=== PATIENT | female | born 1990 | race Caucasian/White ===

== ENCOUNTER 2016-10-29 18:45 | Emergency (ER) | payer MEDICAID ==
[2016-10-29] MEDS ORDERED: KETOROLAC 30 MG/ML VIAL IVP STA (20:03)
[2016-10-29] MEDS ORDERED: SODIUM CHLORIDE 0.9% 1,000 ML IV ONE ×2 (20:03→20:22)
[2016-10-29] MEDS ORDERED: ONDANSETRON 4 MG/2 ML VIAL IVP STA (20:03)
[2016-10-29] MEDS ORDERED: LORazepam 2 MG/ML SYRINGE IVP STA (20:03)
--- NOTE | 2016-10-29 20:06 | ED Physician Documentation ---
PD HPI NVD - Stated complaint Stated Complaint: DRUG WITHDRAWAL - Chief complaint Chief Complaint: Abd Pain - History obtained from History obtained from: Patient - History of Present Illness Timing - onset: Other (She is trying to stop heroin, last used yesterday, injecting about $60 worth per day. Last time she was sober was 18 months ago. She has been having vomiting and diarrhea and stomach cramps and feels restless. ) Review of Systems Constitutional: denies: Fever, Chills Nose: reports: Rhinorrhea / runny nose. denies: Congestion GI: reports: Abdominal Pain, Nausea, Vomiting, Diarrhea PD PAST MEDICAL HISTORY - Past Medical History Cardiovascular: None Respiratory: None Neuro: None Endocrine/Autoimmune: None GI: Other LIBRARY MANAGER: Ovarian cysts : Chronic bladder infection, Other HEENT: None Psych: Anxiety, Panic attacks Musculoskeletal: None Derm: None - Past Surgical History Past Surgical History: Yes General: Colonoscopy - Present Medications Home Medications: Ambulatory Orders Medication Instructions Recorded Confirmed Etonogestrel/Ethinyl Estradiol 1 each VG 01/23/15 06/16/15 [Nuvaring Vaginal Ring] Clonazepam 0.5 mg PO BID PRN #4 tablet 06/27/15 08/06/15 Tramadol HCl 50 mg PO Q6HR PRN 08/06/15 09/30/15 Cyclobenzaprine [Flexeril] 10 mg PO TID PRN #20 tablet 10/01/15 Ondansetron Odt [Zofran] 4 mg TL Q6H PRN #10 tablet 12/11/15 Ondansetron HCl [Zofran] 4 mg PO Q6H PRN #10 tablet 04/22/16 Lorazepam [Ativan] 1 mg PO TID PRN #10 tablet 10/29/16 Ondansetron HCl [Zofran] 4 mg PO Q6H PRN #10 tablet 10/29/16 cloNIDine [Catapres] 0.1 mg PO BID #7 tablet 10/29/16 - Allergies Allergies/Adverse Reactions: Allergies Allergy/AdvReac Type Severity Reaction Status Date / Time promethazine HCl * Allergy Hallucinati Verified 10/29/16 18:55 [From Phenergan] ons - Social History Does the pt smoke?: Yes Smoking Status: Current every day smoker Does the pt drink ETOH?: Yes Does the pt have substance abuse?: No Substance Use and Type: Heroin - Immunizations Immunizations are current?: No Immunizations: TDAP >10years/unknown - POLST Patient has POLST: No PD ED PE NORMAL - Vitals Vital signs reviewed: Yes - General General: Alert and oriented X 3, Other (Restless) - HEENT HEENT: Other (Dilated pupils) - Neck Neck: Supple, no meningeal sign, No bony TTP - Abdomen Abdomen: Normal bowel sounds, Soft, Non tender - Extremities Extremities: No deformity, No tenderness to palpate - Neuro Neuro: Alert and oriented X 3, Normal speech - Psych Psych: Normal mood, Normal affect Results - Vitals Vitals: Vital Signs - 24 hr 10/29/16 18:52 Temperature 37.2 C Heart Rate 126 H Respiratory 18 Rate Blood Pressure 135/80 H O2 Saturation 98 Oxygen O2 Source Room air Departure - Departure Disposition: 01 Home, Self Care Clinical Impression: Heroin withdrawal Condition: Good Record reviewed to determine appropriate education?: Yes Instructions: Addiction Heroin Tx Prescriptions: Lorazepam [Ativan] 1 mg PO TID PRN #10 tablet PRN Reason: Anxiety cloNIDine [Catapres] 0.1 mg PO BID #7 tablet Ondansetron HCl [Zofran] 4 mg PO Q6H PRN #10 tablet PRN Reason: Nausea / Vomiting Comments: Call your doctor to arrange a follow-up appointment, make the next available appointment. In the interim, return anytime if worse or if new symptoms develop. Your blood pressure was elevated today on check into the emergency department. This does not mean that you have hypertension, it is a common phenomenon to come to the emergency department and have elevated blood pressure. I recommend that she see her primary care physician within the week to have it rechecked when you are feeling better.
[2016-10-29] MEDS ORDERED: LORazepam 2 MG/ML SYRINGE ONE (20:21)
[2016-10-29] MEDS ORDERED: ONDANSETRON 4 MG/2 ML VIAL ONE (20:21)
[2016-10-29] MEDS ORDERED: KETOROLAC 30 MG/ML VIAL ONE (20:22)
[2016-10-29] MEDS ORDERED: SODIUM CHLORIDE FLUSH 0.9% 10 ML SYRINGE IVP ONE (20:22)
[2016-10-29] MEDS ORDERED: cloNIDine 0.1 MG TABLET PO STA (20:58)
[2016-10-29] MEDS ORDERED: ACETAMINOPHEN 325 MG TABLET PO STA (20:58)
[2016-10-29] MEDS ORDERED: LORazepam 0.5 MG TABLET PO STA (20:58)
[2016-10-29] MEDS ORDERED: cloNIDine 0.1 MG TABLET ONE (21:02)
[2016-10-29] MEDS ORDERED: ACETAMINOPHEN 325 MG TABLET PO ONE (21:02)
[2016-10-29] MEDS ORDERED: LORazepam 0.5 MG TABLET ONE (21:02)
[2016-10-29 21:08] VITALS: BP 132/82
== END 2016-10-29 21:40 | disposition home or self-care (01) ==
LOC: ED 18:45
DX: F11.23 Opioid dependence with withdrawal (principal); F17.200 Nicotine dependence, unspecified, uncomplicated
CPT/HCPCS: 96374; 96375; 99283; 99284; A9270; J2060

== ENCOUNTER 2016-12-12 21:14 | Emergency (ER) | payer MEDICAID ==
--- NOTE | 2016-12-13 01:35 | ED Physician Documentation ---
History of Present Illness - Stated complaint Stated Complaint: OD - Chief complaint Chief Complaint: MHE - Additonal information Additional information: Patient is a 26-year-old female with a history of opiate abuse. She presents with respiratory distress after injecting herself with heroin earlier this evening. She was found by her boyfriend who summoned the ambulance and subsequently was brought in here for evaluation. The patient is very sedated but arousable. She is a regular user of heroin and has been so for a long time. She cites chronic back pain as a cause. She denies any other coingestants. Review of systems: For pertinent positive and negatives in the review of systems please see the history of present illness, otherwise all other systems have been reviewed and are negative. Dragon disclaimer: Parts of this medical record were created using voice recognition technology. Because of the inherent limitations of this system, occasional same sounding word substitutions do occur and persist despite proofreading. Please read the document for context. Review of Systems Ten Systems: 10 systems reviewed and negative Constitutional: denies: Fever, Chills Cardiac: denies: Chest pain / pressure, Palpitations Respiratory: denies: Dyspnea, Cough GI: denies: Abdominal Pain, Abdominal Swelling, Nausea, Vomiting PD PAST MEDICAL HISTORY - Past Medical History Cardiovascular: None Respiratory: None Neuro: None Endocrine/Autoimmune: None GI: Other CONSTRUCTION EQUIPMENT TECHNICIAN: Ovarian cysts : Chronic bladder infection, Other HEENT: None Psych: Anxiety, Panic attacks Musculoskeletal: None Derm: None - Past Surgical History Past Surgical History: Yes General: Colonoscopy - Present Medications Home Medications: Ambulatory Orders Medication Instructions Recorded Confirmed Etonogestrel/Ethinyl Estradiol 1 each VG 01/23/15 06/16/15 [Nuvaring Vaginal Ring] Clonazepam 0.5 mg PO BID PRN #4 tablet 06/27/15 08/06/15 Tramadol HCl 50 mg PO Q6HR PRN 08/06/15 09/30/15 Cyclobenzaprine [Flexeril] 10 mg PO TID PRN #20 tablet 10/01/15 Ondansetron Odt [Zofran] 4 mg TL Q6H PRN #10 tablet 12/11/15 Ondansetron HCl [Zofran] 4 mg PO Q6H PRN #10 tablet 04/22/16 Lorazepam [Ativan] 1 mg PO TID PRN #10 tablet 10/29/16 Ondansetron HCl [Zofran] 4 mg PO Q6H PRN #10 tablet 10/29/16 cloNIDine [Catapres] 0.1 mg PO BID #7 tablet 10/29/16 - Allergies Allergies/Adverse Reactions: Allergies Allergy/AdvReac Type Severity Reaction Status Date / Time promethazine HCl * Allergy Hallucinati Verified 10/29/16 18:55 [From Phenergan] ons - Social History Does the pt smoke?: Yes Smoking Status: Current every day smoker Does the pt drink ETOH?: Yes Does the pt have substance abuse?: No - Immunizations Immunizations are current?: No Immunizations: TDAP >10years/unknown - POLST Patient has POLST: No PD ED PE NORMAL - Vitals Vital signs reviewed: Yes - General General: Alert and oriented X 3, No acute distress, Other (Stuporous 26-year- old female who is seen nodding off in the chair next to my desk) - HEENT HEENT: Atraumatic, PERRL, EOMI, Pharynx benign, Dentition benign, Other (Pupils are 2 mm occasionally with disconjugate gaze) - Neck Neck: Supple, no meningeal sign, No JVD - Cardiac Cardiac: RRR, No murmur, No gallop, No rub - Respiratory Respiratory: No respiratory distress, Clear bilaterally - Abdomen Abdomen: Normal bowel sounds, Soft, Non tender, Non distended - Female Female : Deferred - Rectal Rectal: Deferred - Back Back: No CVA TTP - Derm Derm: Normal color, Warm and dry - Extremities Extremities: No deformity, No tenderness to palpate, Normal ROM s pain - Neuro Neuro: Alert and oriented X 3, No motor deficit, No sensory deficit Results - Vitals Vitals: Vital Signs - 24 hr 12/12/16 12/12/16 12/12/16 21:25 22:26 23:16 Temperature 36.8 C Heart Rate 115 H 85 88 Respiratory 18 12 16 Rate Blood Pressure 137/92 H 127/86 H O2 Saturation 98 96 100 12/13/16 00:21 Temperature Heart Rate 81 Respiratory 16 Rate Blood Pressure 123/71 O2 Saturation 99 Oxygen O2 Source Room air PD MEDICAL DECISION MAKING - ED course Complexity details: reviewed old records, reviewed results ED course: Patient is a 26-year-old female brought in for evaluation after accidentally injecting too much heroin. Patient is watched very closely here initially as she was very sedated. She was kept in emergency department for approximately 5 hours after injection and is steadily improved. At this time she has had no recurrent episodes of hypoxemia and I think she is stable to be discharged home. She did not receive any Narcan which is watched very closely over her several hours here. Disposition: To home Clinical impression: 1. Heroin overdose-accidental
[2016-12-13 01:42] VITALS: BP 108/62
== END 2016-12-13 02:02 | disposition home or self-care (01) ==
LOC: ED 21:14
DX: T40.1X1A Poisoning by heroin, accidental (unintentional), initial encounter (principal); F17.200 Nicotine dependence, unspecified, uncomplicated
CPT/HCPCS: 99283; 99284

== ENCOUNTER 2017-01-03 04:18 | Outpatient (CLI) | payer MEDICAID | END 2017-01-03 04:19 | disposition critical access hospital (66) | LOC: EMS 04:18 | PROVIDERS: ATTEND Surgery | DX: M25.562 Pain in left knee (principal); M25.552 Pain in left hip; M25.572 Pain in left ankle and joints of left foot; W01.0XXA Fall on same level from slipping, tripping and stumbling without subsequent striking against object, initial encounter; Y92.59 Other trade areas as the place of occurrence of the external cause | CPT/HCPCS: A0425; A0429 ==

== ENCOUNTER 2017-01-03 04:33 | Emergency (ER) | payer MEDICAID ==
--- NOTE | 2017-01-03 05:14 | ED Physician Documentation ---
PD HPI LOWER EXT INJURY - Stated complaint Stated Complaint: RIGHT KNEE PAIN, STOMACH CRAMPS - Chief complaint Chief Complaint: Ext Problem - History obtained from History obtained from: Patient, EMS - History of Present Illness PD HPI LOW EXT INJURY LOCATION: Left, Knee, Ankle Type of injury: Fall Where injury occurred: Other (11-08) Timing - onset: How many minutes ago (30) Timing - details: Abrupt onset Improved by: Immobilization Worsened by: Moving, Palpating Associated symptoms: No: Tingling, Swelling Similar symptoms before: Has not had sx before Recently seen: Not recently seen - Additional information Additional information: Patient is a 26 year old female with a history of heroin abuse and multiple ER visits who is presenting to the emergency department for left sided knee and ankle pain. patient was in a 11/08 bathroom when she slipped and fell landing on her knee. Patient is also withdrawing from heroin and has abdominal cramping and chills. Review of Systems Constitutional: reports: Chills, Myalgias. denies: Fever Eyes: denies: Decreased vision Ears: denies: Ear pain, Drainage/discharge Nose: reports: Rhinorrhea / runny nose. denies: Congestion, Sinus pressure / pain Throat: denies: Sore throat Cardiac: denies: Chest pain / pressure, Palpitations Respiratory: denies: Cough GI: reports: Abdominal Pain. denies: Nausea, Vomiting, Constipation, Diarrhea : reports: Dysuria, Irregular menses Skin: denies: Rash, Lesions Musculoskeletal: reports: Extremity pain, Joint pain Neurologic: denies: Generalized weakness, Focal weakness, Numbness Immunocompromised: denies: Immunocompromised PD PAST MEDICAL HISTORY - Past Medical History Cardiovascular: None Respiratory: None Neuro: None Endocrine/Autoimmune: None GI: Other CUSTOMER RETENTION SPECIALIST: Ovarian cysts : Chronic bladder infection, Other HEENT: None Psych: Anxiety, Panic attacks Musculoskeletal: None Derm: None - Past Surgical History Past Surgical History: Yes General: Colonoscopy - Present Medications Home Medications: Ambulatory Orders Medication Instructions Recorded Confirmed Clonazepam 0.5 mg PO BID PRN #4 tablet 06/27/15 08/06/15 Tramadol HCl 50 mg PO Q6HR PRN 08/06/15 09/30/15 Cyclobenzaprine [Flexeril] 10 mg PO TID PRN #20 tablet 10/01/15 Lorazepam [Ativan] 1 mg PO TID PRN #10 tablet 10/29/16 cloNIDine [Catapres] 0.1 mg PO BID #10 tablet 01/03/17 - Allergies Allergies/Adverse Reactions: Allergies Allergy/AdvReac Type Severity Reaction Status Date / Time promethazine HCl * Allergy Hallucinati Verified 01/03/17 04:40 [From Phenergan] ons - Social History Does the pt smoke?: Yes Smoking Status: Current every day smoker Does the pt drink ETOH?: Yes Does the pt have substance abuse?: Yes Substance Use and Type: Heroin - Immunizations Immunizations are current?: No Immunizations: TDAP >10years/unknown - POLST Patient has POLST: No PD ED PE NORMAL - Vitals Vital signs reviewed: Yes - General General: Alert and oriented X 3 - HEENT HEENT: Atraumatic, Moist mucous membranes, Pharynx benign - Cardiac Cardiac: RRR, No murmur - Respiratory Respiratory: No respiratory distress - Abdomen Abdomen: Soft, Non distended - Derm Derm: Normal color, Warm and dry - Neuro Neuro: Alert and oriented X 3, No motor deficit, No sensory deficit, Normal speech PD ED PE EXPANDED - General General: Alert, Disheveled, poorly kept - HEENT HEENT: Rhinorrhea - Extremities Extremities: Left knee (tenderness to palpation, full rom), Left ankle ( tenderness to palpation, no deformity) Results - Vitals Vitals: Vital Signs - 24 hr 01/03/17 04:36 Temperature 36.9 C Heart Rate 102 H Respiratory 20 Rate Blood Pressure 132/86 H O2 Saturation 99 Oxygen O2 Source Room air - Rads (name of study) knee Radiology: EMP read indepedently (no acute fracture or dislocation) ankle x ray Radiology: EMP read indepedently (no acute fracture or dislocation) PD MEDICAL DECISION MAKING - ED course Complexity details: reviewed old records, reviewed results, re-evaluated patient , considered differential, d/w patient ED course: Patient was seen and examined at bedside. patient was sent for imaging. When patient returned she was treated with clonidine and placed in an dafne bandage. patient had no acute fracture or dislocation and was stable for discharge with outpatient follow up. Departure - Departure Disposition: 01 Home, Self Care Clinical Impression: Contusion of knee, left Condition: Stable Instructions: ED Contusion Lower Ext Follow-Up: primary,care provider [Other] - Within 3 Days Prescriptions: cloNIDine [Catapres] 0.1 mg PO BID #10 tablet Comments: Your diagnostics today were within normal limits. You should take motrin or tylenol as needed for pain. You can take the clonidine for the withdrawal symptoms but this will only last you a few days. You will need to follow up with your pmd for further evaluation and care.
[2017-01-03] MEDS ORDERED: cloNIDine 0.1 MG TABLET PO STA (05:35)
[2017-01-03] MEDS ORDERED: cloNIDine 0.1 MG TABLET ONE (05:48)
--- NOTE | 2017-01-03 06:09 | XRAY Preliminary Report ---
Exam: XR Knee 4 View LT IMPRESSION: Normal knee radiography. [facility] SITE ID: [id number]
--- NOTE | 2017-01-03 06:10 | XRAY Preliminary Report ---
Exam: XR Ankle 3 View LT IMPRESSION: Normal ankle radiography. [facility] SITE ID: [id number]
--- NOTE | 2017-01-03 06:12 | XRAY Report ---
EXAM: LEFT KNEE RADIOGRAPHY EXAM DATE: 01/03/2017 05:58 AM. CLINICAL HISTORY: Ankle and knee pain after falling. COMPARISON: None. TECHNIQUE: 4 views. FINDINGS: Bones: Normal. No fractures or bone lesions. Joints: Normal. No effusion. No subluxations. Soft Tissues: Normal. No soft tissue swelling. IMPRESSION: Normal knee radiography. [facility] Referring Provider Line: [phone] SITE ID: [id number]
--- NOTE | 2017-01-03 06:13 | XRAY Report ---
EXAM: LEFT ANKLE RADIOGRAPHY EXAM DATE: 01/03/2017 05:56 AM. CLINICAL HISTORY: Ankle and knee pain after falling. COMPARISON: None. TECHNIQUE: 3 views. FINDINGS: Bones: Normal. No fractures or bone lesions. Joints: Normal. No effusion. No subluxations. The ankle mortise is normally aligned. Soft Tissues: Normal. No soft tissue swelling. IMPRESSION: Normal ankle radiography. [facility] Referring Provider Line: [phone] SITE ID: [id number]
[2017-01-03 07:07] VITALS: BP 116/66
== END 2017-01-03 07:00 | disposition home or self-care (01) ==
LOC: EDUNIT# → ED 04:33
DX: S80.02XA Contusion of left knee, initial encounter (principal); W01.0XXA Fall on same level from slipping, tripping and stumbling without subsequent striking against object, initial encounter; Y92.89 Other specified places as the place of occurrence of the external cause; F17.200 Nicotine dependence, unspecified, uncomplicated
CPT/HCPCS: 73564; 73610; 99283; A9270

== ENCOUNTER 2017-01-26 00:49 | Outpatient (CLI) | payer MEDICAID | END 2017-01-26 00:50 | disposition critical access hospital (66) | LOC: EMS 00:49 | PROVIDERS: ATTEND Surgery | DX: S09.92XA Unspecified injury of nose, initial encounter (principal); R51 Headache; Y04.2XXA Assault by strike against or bumped into by another person, initial encounter | CPT/HCPCS: A0425; A0429 ==

== ENCOUNTER 2017-01-26 01:05 | Emergency (ER) | payer MEDICAID ==
[2017-01-26] MEDS ORDERED: IBUPROFEN 600 MG TABLET PO STA (01:10)
[2017-01-26] MEDS ORDERED: IBUPROFEN 600 MG TABLET PO ONE (01:17)
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
--- NOTE | 2017-01-26 02:19 | XRAY Preliminary Report ---
Exam: XR Nasal Bones IMPRESSION: 1. Nondepressed nasal fracture. [facility] SITE ID: [id number]
--- NOTE | 2017-01-26 02:22 | XRAY Report ---
EXAM: NASAL BONES RADIOGRAPHY EXAM DATE: 01/26/2017 01:48 AM. CLINICAL HISTORY: Pain after injury. COMPARISONS: None. TECHNIQUE: 3 views. FINDINGS: Bones: Nondepressed nasal fracture. Sinuses: No fluid level seen. Other: Mild soft tissue swelling. IMPRESSION: 1. Nondepressed nasal fracture. [facility] Referring Provider Line: [phone] SITE ID: [id number]
[2017-01-26 02:41] VITALS: BP 125/71
== END 2017-01-26 02:35 | disposition home or self-care (01) ==
LOC: EDUNIT# → ED 01:05
DX: S02.2XXA Fracture of nasal bones, initial encounter for closed fracture (principal); Y08.89XA Assault by other specified means, initial encounter; F17.200 Nicotine dependence, unspecified, uncomplicated
CPT/HCPCS: 70160; 99283; A9270

== ENCOUNTER 2017-02-18 21:19 | Emergency (ER) | payer MEDICAID ==
--- NOTE | 2017-02-18 22:42 | ED Physician Documentation ---
History of Present Illness - Stated complaint Stated Complaint: SWOLLEN LT ARM - Chief complaint Chief Complaint: Ext Problem - History obtained from History obtained from: Patient, Friend - History of Present Illness Timing: Today Pain level max: 6 Pain level now: 1 Improved by: nothing Worsened by: nothing - Additonal information Additional information: Patient is a 26-year-old female who presents to the emergency department after injecting herself with heroin tonight in the left hand, then describes swelling and redness to the left upper extremity that lasted approximately 15 minutes. Now resolved. Also complains of back pain at that time. States she is currently feeling better. No fevers. No nausea, no vomiting. She states she is awaiting acceptance into a rehab program. Review of Systems Constitutional: denies: Fever, Chills Ears: denies: Ear pain Nose: denies: Rhinorrhea / runny nose, Congestion Throat: denies: Sore throat Respiratory: denies: Cough GI: reports: Nausea (also improved now). denies: Abdominal Pain, Diarrhea : reports: Hesitancy. denies: Dysuria, Frequency, Now EGA Skin: denies: Rash Musculoskeletal: denies: Neck pain, Back pain PD PAST MEDICAL HISTORY - Past Medical History Cardiovascular: None Respiratory: None Neuro: None Endocrine/Autoimmune: None GI: Other [employer]: Ovarian cysts : Chronic bladder infection, Other HEENT: None Psych: Anxiety, Panic attacks Musculoskeletal: None Derm: None - Past Surgical History Past Surgical History: Yes General: Colonoscopy - Present Medications Home Medications: Ambulatory Orders Medication Instructions Recorded Confirmed Gabapentin 300 mg ORAL BID 02/18/17 02/18/17 - Allergies Allergies/Adverse Reactions: Allergies Allergy/AdvReac Type Severity Reaction Status Date / Time promethazine HCl * Allergy Hallucinati Verified 02/18/17 21:26 [From Phenergan] ons - Social History Does the pt smoke?: Yes Smoking Status: Current every day smoker Does the pt drink ETOH?: Yes Does the pt have substance abuse?: Yes Substance Use and Type: Heroin - Immunizations Immunizations are current?: No Immunizations: TDAP >10years/unknown - POLST Patient has POLST: No PD ED PE NORMAL - Vitals Vital signs reviewed: Yes - General General: Alert and oriented X 3, No acute distress - HEENT HEENT: Moist mucous membranes - Neck Neck: Supple, no meningeal sign - Cardiac Cardiac: RRR, No murmur, Strong equal pulses - Respiratory Respiratory: No respiratory distress, Clear bilaterally - Abdomen Abdomen: Soft, Non tender, Non distended - Derm Derm: Warm and dry, No rash - Extremities Extremities: No deformity, No tenderness to palpate, No edema, Other (normal vasular exam of the LUE. brisk cap refill. normal radial, brachial pulses. normal allens test. track bruce on the arm.No evidence of infection.) - Neuro Neuro: Alert and oriented X 3 - Psych Psych: Normal mood, Normal affect Results - Vitals Vitals: Vital Signs - 24 hr 02/18/17 02/18/17 21:22 22:44 Temperature 36.4 C L 36.5 C Heart Rate 102 H 110 H Respiratory 18 17 Rate Blood Pressure 153/95 H 141/92 H O2 Saturation 98 99 Oxygen O2 Source Room air PD MEDICAL DECISION MAKING - ED course Complexity details: re-evaluated patient, considered differential, d/w patient ED course: Patient presents to the emergency department with what appears to be a local reaction after injecting heroin into her left hand tonight. Possible this related to a vasospastic event? This appears to have resolved prior to evaluation in the emergency department. She also has a history of anxiety and did have some chest tightness and nausea which is also resolved. Observed in the emergency department without any changes in her exam. Remained neurologically intact. Patient also remained vascularly intact. Patient counseled to stop using heroin, states also occasionally uses methamphetamines. Encouraged her to stop this as well. She is trying to get into treatment. Patient counseled regarding signs and symptoms for which I believe and urgent re -evaluation would be necessary. Patient with good understanding of and agreement to plan and is comfortable going home at this time This document was made in part using voice recognition software. While efforts are made to proofread this document, sound alike and grammatical errors may occur. Departure - Departure Disposition: 01 Home, Self Care Clinical Impression: Heroin abuse Condition: Good Instructions: ED Narcotic Abuse Follow-Up: your,doctor in 1 week [Other] Comments: Return if you worsen. You need to follow up with your doctor and rehab. You need to stay away from heroin and meth. Discharge Date/Time: 02/18/17 22:55
[2017-02-18 22:45] VITALS: BP 141/92
== END 2017-02-18 22:55 | disposition home or self-care (01) ==
LOC: ED 21:19
DX: F11.10 Opioid abuse, uncomplicated (principal); F17.200 Nicotine dependence, unspecified, uncomplicated
CPT/HCPCS: 99283